=== PATIENT | male | born 1995 | race Two or more races ===

== ENCOUNTER 2021-05-19 01:39 | Emergency (ER) | payer MEDICAID, SELFPAY ==
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
[2021-05-19 01:50] VITALS: BP 114/61; PULSE 72; RESP 18; TEMP 36.8; O2SAT 98; BMI 34.0
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
== END 2021-05-19 04:23 | disposition home or self-care (01) ==
PROVIDERS: Emergency Provider Emergency Medicine
DX: S40.012A Contusion of left shoulder, initial encounter (principal); S10.93XA Contusion of unspecified part of neck, initial encounter; V47.5XXA Car driver injured in collision with fixed or stationary object in traffic accident, initial encounter; Y93.89 Activity, other specified; Y92.9 Unspecified place or not applicable; Y99.9 Unspecified external cause status
CPT/HCPCS: 72040; 73030; 99283

== ENCOUNTER 2021-11-15 05:09 | Emergency (ER) | payer MEDICAID, SELFPAY ==
--- NOTE | ~2021-11-15 | XR_ITS ---
EXAMINATION: XR KNEE, RIGHT CLINICAL INFORMATION: Swelling COMPARISON: None TECHNIQUE: Four views of the right knee. FINDINGS: No fracture or joint effusion. Alignment is anatomic. Joint spaces are well maintained. Trace knee joint effusion. No abnormal soft tissue calcification. XR/XR knee RT 4V IMPRESSION: No acute osseous abnormalities. Trace knee joint effusion.
[2021-11-15 05:28] VITALS: BP 136/70; PULSE 97; RESP 16; TEMP 36.3; O2SAT 99; BMI 34.7
[2021-11-15 06:08] VITALS: BP 135/62; PULSE 84; RESP 17; O2SAT 98
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
[2021-11-15] MEDS: Acetaminophen 325 MG TABLET 975 MG PO (07:17)
[2021-11-15] MEDS: Ketorolac Tromethamine 15 MG/ML VIAL IM (07:17)
== END 2021-11-15 07:28 | disposition home or self-care (01) ==
PROVIDERS: Emergency Provider Student in an Organized Health Care Education/Training Program
DX: S83.91XA Sprain of unspecified site of right knee, initial encounter (principal); X58.XXXA Exposure to other specified factors, initial encounter; Y93.9 Activity, unspecified; Y92.007 Garden or yard of unspecified non-institutional (private) residence as the place of occurrence of the external cause; Y99.9 Unspecified external cause status; Z79.899 Other long term (current) drug therapy
CPT/HCPCS: 73564; 96372; 99283; 99284; J1885

== ENCOUNTER → 2021-11-23 13:58 | Outpatient (BNVA) | payer MEDICAID, SELFPAY | PROVIDERS: Visit Provider Physician Assistant | DX: M23.91 Unspecified internal derangement of right knee (principal) | CPT/HCPCS: 99202 ==